=== PATIENT | female | born 1990 | race Native Hawaiian/Other Pacific Islander ===

== ENCOUNTER 2016-05-02 05:17 | Emergency (ER) | payer SELFPAY ==
[~2016-05-02] VITALS: Ht 160 cm; Wt 80.0 kg
[2016-05-02 05:24] VITALS: BP 129/86; PULSE 65; RESP 16; TEMP 97.7; O2SAT 96
[2016-05-02] MEDS ORDERED: HYDR-3533 PO (05:38)
[2016-05-02] MEDS ORDERED: AMOX500C PO (05:38)
[2016-05-02] MEDS ORDERED: IBUP800T23 PO (05:38)
--- NOTE | 2016-05-02 05:42 | PD ---
HPI Chief Complaint: Oral / Dental Pain or Problem Time Seen by Provider: 05:38 Travel History International Travel<30 days: No Contact w/Intl Traveler<30days: No Traveled to known affect area: No History of Present Illness HPI 26-year-old [place] female presents to emergency Department with complaints of dental pain. She states that she had just moved to the [facility] within the last 6 months. She states she has had problems with her teeth now which started during her . Her child is now 4 months old. She is breast- feeding. She has had worsening pain over the past week and her right mandible and jaw. She has teeth both in the upper and lower that are been bothering her. She has pain radiating up into her right ear. She states the pain is severe. There is no palliative activity. Worsened with palpation and movement of the jaw. She denies any fever or chills. No nausea vomiting. No facial swelling. PFSH Past Medical History Medical History: Denies Significant Hx Tetanus Vaccination: < 5 Years ?: Not LMP: 03/2016 Past Surgical History Surgical History: No Previous Surgery Social History Alcohol Use: No Tobacco Use: No Substance Use: No Allergies-Medications (Allergen,Severity, Reaction): Coded Allergies: No Known Allergies (Unverified , 05/02/16) Reported Meds & Prescriptions Reported Meds & Active Scripts Active No Active Prescriptions or Reported Medications Review of Systems Except as stated in HPI: all other systems reviewed are Neg Physical Exam Narrative GENERAL: Well-developed, well-nourished in no acute distress. Nontoxic appearing. HEAD: Normocephalic, atraumatic. EYES: Pupils equal round and reactive. Extraocular motions intact. No scleral icterus. No injection or drainage. ENT: TMs clear without erythema. The external auditory canals clear. Nose: clear . Posterior pharynx is pink and moist. No tonsillar edema or exudate. Uvula midline. Airway patent. The patient has periodontal disease. There is no large single dental carry that I can identify as a source of her pain. NECK: Trachea midline.Supple, nontender, moves head freely. No central bony tenderness or spasm. CARDIOVASCULAR: Regular rate and rhythm without murmurs, gallops, or rubs. RESPIRATORY: Clear to auscultation. Breath sounds equal bilaterally. No wheezes , rales, or rhonchi. GASTROINTESTINAL: Abdomen soft, non-tender, nondistended. No hepato-splenomegaly , or palpable masses. No guarding. EXTREMITIES: No clubbing, cyanosis, or edema. No joint tenderness, effusion, or edema noted. BACK: Nontender without deformity or crepitance. No flank tenderness. Data Data Last Documented VS Vital Signs Date Time Temp Pulse Resp B/P Pulse Ox O2 Delivery O2 Flow Rate FiO2 05/02/16 05:24 97.7 65 16 129/86 96 Orders Amoxicillin (Trimox) (05/02/16 05:45) Acetamin-Hydrocod 325-5 Mg ([place] 5-325 (05/02/16 05:45) MDM Medical Decision Making Medical Screen Exam Complete: Yes Emergency Medical Condition: Yes Medical Record Reviewed: Yes Differential Diagnosis MDM: Moderate Differential diagnoses: Dental abscess, dental caries, osteitis, cellulitis Narrative Course pATIENT IS GIVEN AMOXICILLIN 1 G BY MOUTH, lORTAB 5 MG BY MOUTH. This is dentalgia, dental caries Diagnosis Primary Impression: Dentalgia Additional Impression: Dental caries Patient Instructions: Narcotic given in the ED, General Instructions Additional Instructions: Rest. [place] gargles. [place] oil on cotton balls. Amoxicillin, ibuprofen and Lortab. follow-up with a dentist as soon as possible. And return to the ER if any problems. Med/Other Pt SpecificInfo: Prescription(s) given Scripts Ibuprofen 800 Mg [id number] Mg PO Q8H PRN (Pain/Inflammation) #30 TAB Prov:Chastity Hannah MD 05/02/16 Hydrocodone-Acetaminophen (Lortab)5-325 Mg Tab1 Tab PO Q8HR PRN (PAIN) #12 TAB Prov:Chastity Hannah MD 05/02/16 Amoxicillin 500 Mg [id number] Mg PO TID #30 CAP Prov:Chastity Hannah MD 05/02/16 Disposition: 01 DISCHARGE HOME Condition: Stable Lyle Garcia May 02, 2016 05:42
[2016-05-02] MEDS ORDERED: ACETAMINOPHEN/HYDROcodone 325 MG/5 MG TAB PO ONE (05:45)
[2016-05-02] MEDS ORDERED: AMOXICILLIN (TRIHYDRATE) 500 MG CAP PO ONE (05:45)
== END 2016-05-02 06:10 | disposition home or self-care (01) ==
LOC: NEPB 05:17
DX: K02.9 Dental caries, unspecified (principal)
CPT/HCPCS: 99282